=== PATIENT | female | born 1960 | race Caucasian/White ===

== ENCOUNTER 2022-04-30 08:12 | Emergency (ER) | payer BC, SELFPAY ==
[2022-04-30 08:15] VITALS: BP 163/82; PULSE 66; RESP 16; TEMP 36.2; O2SAT 99
[2022-04-30] MEDS: Normal Saline 1,000 ML 1000 ML IV (08:30)
--- NOTE | 2022-04-30 08:38 | W.ED.GENAD ---
Discharge Plan Disposition Patient Disposition: HOME Condition: Improving Discharge Details Clinical Impression: Nausea & vomiting, Electrolyte abnormality Primary Care Provider: Unknown,Unknown ED Provider: Piyush Banks Home Meds and New Rx's Prescriptions: New ondansetron 4 mg tablet,disintegrating 4 mg PO Q6H PRNQty: 10 0RF No Action multivitamin Capsule 1 cap PO DAILY Discharge Instructions Instructions: Acute Nausea and Vomiting (ED) Additional Instructions: Continue to stay well-hydrated and drink electrolyte water. It is recommended for at least the next 12 hours to have clear liquid diet then slowly advance your diet as tolerated by symptoms. If you have any new or significant worsening of symptoms such as persistent uncontrollable vomiting, fever chills, or severe abdominal pain please return to the emergency department or go to the closest emergency department for reassessment. Referrals: Primary Care Provider [Outside] (As needed for reassessment or if not improving) Discharge Data Discharge Date/Time-TO BE ENTERED AT DEPARTURE: 04/30/22 10:35 Medical Decision Making Patient presenting to the emergency department for chief complaint of nausea vomiting and headache. She states that she was at a wedding yesterday evening and may have had food that cause food poisoning but also has a history of migraine headaches with similar presentation. Patient denies any different symptoms compared to her typical migraine but does state that she had some muscle cramping. Exam is unremarkable for any worrisome focal findings. We will check labs due to concern of potential electrolyte abnormalities or abnormal findings secondary to foodborne illness. Will give IV fluids and also treat migraine potential with Toradol, Compazine, Benadryl. Review of labs show an overall unremarkable CBC, CMP shows slight hyponatremia, hypokalemia, low chloride, magnesium 1.7 with slightly elevated glucose. We will plan on repleting patient's potassium and magnesium along with p.o. challenge. Patient tolerating p.o. intake and review of urinalysis shows no worrisome findings. We will plan on discharging patient with return and follow-up precautions. After discussion of diagnosis and plan of care patient has no further needs, questions, or concerns and states clear understanding to return to the emergency department for any worsening symptoms. This documentation was generated using [employer] system, please disregard any oddities of phrase or misspellings. Lab Data Lab results reviewed: Yes I reviewed the patient's lab results. HPI General Mode of arrival: ambulatory. Date/Time Provider Initiated Documentation: 04/30/22 08:25. Limitations to Documentation: no limitations. Information obtained by: patient, family and RN notes reviewed. History of Present Illness 62 year old F presents to the emergency department with the chief complaint of Nausea vomiting headache, described as moderate and similar to prior episodes, with intensity rated at 10. Quality is described as aching, and is localized to the head. Patient reports no radiation. Patient started experiencing this hour(s) (4) and it has been constant. No relieving factors improve symptom(s), Eating worsens symptoms . Patient notes loss of appetite and nausea/vomiting. Patient did receive the following treatments prior to arrival, other (Acetaminophen) Related Data Home Medications Medication Instructions Recorded Confirmed multivitamin 1 cap PO DAILY 04/30/22 04/30/22 ondansetron 4 mg disintegrating 4 mg PO Q6H PRN #10 tabs 04/30/22 tablet Previous Rx's Medication Instructions Recorded ondansetron 4 mg disintegrating 4 mg PO Q6H PRN #10 tabs 04/30/22 tablet Allergies Allergy/AdvReac Type Severity Reaction Status Date / Time erythromycin base Allergy Unverified 04/30/22 08:22 General Stated Complaint: Nausea/Vomit/Diar SAMANTHA: 3 Review of Systems Constitutional Constitutional: Denies body ache(s), Denies chills, Denies fever(s), Reports headache(s) and Reports malaise Eyes Eyes: Denies change in vision ENT Ears, Nose, Mouth, and Throat: Denies dizziness and Reports headache(s) Cardiovascular Cardiovascular: Denies chest pain and Denies syncope Respiratory Respiratory: Denies cough Gastrointestinal Gastrointestinal: Denies diarrhea, Denies loose stools, Reports nausea, Reports vomiting and Denies hematemesis Musculoskeletal Musculoskeletal: Reports muscle cramps Integumentary/Breasts Skin/Breast: Denies rash Neurologic Neurologic: Reports as per HPI, Denies dizziness, Denies syncope, Reports headache(s) and Denies sensory deficit PFSH All Active Problems (Updated 04/30/22 @ 10:22 by Piyush Banks NP) Nausea & vomiting (Acute) Electrolyte abnormality (Acute) Medical History (Updated 04/30/22 @ 10:22 by Piyush Banks NP) Migraine headache Social History Smoking/Tobacco Use Status: Never Smoking risk assessment performed?: Yes Substance use type: does not use Do you feel safe at home: Yes Do you feel safe in your relationship?: Yes Exam Const General: cooperative, healthy appearing, no acute distress and well groomed Orientation: alert, awake and oriented x3 HENMT Head: normal to inspection Ears: hearing grossly normal bilaterally and TM's normal bilaterally Mouth: oral mucosae normal and moist mucous membranes Throat: posterior oropharynx normal Resp Effort & Inspection: normal respiratory effort and able to speak in complete sentences Auscultation: clear to auscultation bilaterally Cardio Rate: regular rate Rhythm: regular rhythm Heart Sounds: S1 normal and S2 normal GI Palpation: soft, not firm, no guarding, not rigid and nontender Auscultation: normal bowel sounds Neuro General: patient alert, patient awake, patient oriented x3, gait normal, tone normal, moves all extremities and not confused Cognition: normal cognition Speech: speech normal Motor: muscle tone normal throughout and no movement abnormalities noted Course Vital Signs Vital signs: Vital Signs Temperature 36.2 C L 04/30/22 08:15 Pulse 66 04/30/22 08:15 Respiratory Rate 16 04/30/22 08:15 Blood Pressure 163/82 H 04/30/22 08:15 Pulse Oximetry 99 04/30/22 08:15 Temperature 36.2 C L 04/30/22 08:15 Temperature Source Temporal Artery Scan 04/30/22 08:15 Pulse 66 04/30/22 08:15 Respiratory Rate 16 04/30/22 08:15 Respiratory Effort 04/30/22 08:19 Blood Pressure 163/82 H 04/30/22 08:15 Blood Pressure Position Supine 04/30/22 08:15 Pulse Oximetry 99 04/30/22 08:15 Oxygen Delivery Method Room Air 04/30/22 08:15 Oxygen Flow Rate 0 04/30/22 08:15 Pain Level 10 04/30/22 08:15
[2022-04-30] MEDS: Ketorolac 30 MG/ML VIAL IVP (08:49)
[2022-04-30] MEDS: diphenhydrAMINE 50 MG/ML VIAL 25 MG IVP (08:49)
[2022-04-30] MEDS: Prochlorperazine 10 MG/2 ML VIAL IVP (08:49)
[2022-04-30 09:07] LABS: Abs Immature Grans 0.04 10^3/uL (0.0-0.06); Absolute Basophil Count 0.04 10^3/uL (0.0-0.2); Absolute Eosinophil Count 0.05 10^3/uL (0.0-0.7); Absolute Lymphocyte Count 0.87 10^3/uL (1.2-3.4); Absolute Monocyte Count 0.22 10^3/uL (0.1-0.8); Absolute Neutrophil Count 5.27 10^3/uL (1.2-6.7); Basophils % 0.6; Eosinophils % 0.8; HCT 37.8 % (36.0-46.0); HGB 13.1 g/dL (11.2-15.7); Immature Grans % 0.6; Lymphocytes % 13.4; MCH 29.1 pg (27.0-33.0); MCHC 34.7 % (32.0-36.0); MCV 84 fL (80-95); MPV 9.5 fL (8.0-11.0); Monocytes % 3.4; Neutrophils % 81.2; Platelet Count 218 10^3/uL (130-400); RDW 13.5 % (11.7-14.6); RDW-SD 41.5 fL; WBC 6.49 10^3/uL (4.4-10.8)
[2022-04-30 09:22] LABS: ALT 34 U/L (14-59); AST 25 U/L (15-37); Albumin 4.2 g/dL (3.4-5.0); Alkaline Phosphatase 109 U/L (46-116); Anion Gap 8.7 mmol/L (3-11); BUN 13 mg/dL (7-18); Bilirubin, Total 0.9 mg/dL (0.2-1.0); CO2 26.3 mmol/L (21.0-32.0); CREATININE 0.6 mg/dL (0.55-1.02); Calcium 9.1 mg/dL (8.5-10.1); Chloride 93 mmol/L (98-107); Glucose 147 mg/dL (74-106); Lipase 377 U/L (73-393); Magnesium 1.7 mg/dL (1.8-2.4); Potassium 3.3 mmol/L (3.5-5.1); Sodium 128 mmol/L (136-145); Total Protein 7.4 g/dL (6.4-8.2)
[2022-04-30] MEDS: POTASSIUM CHLORIDE 20 MEQ, POTASSIUM CHLORIDE 10 MEQ 30 MEQ PO (09:45)
[2022-04-30] MEDS: Magnesium Oxide 400 MG TAB PO (09:45)
[2022-04-30 10:06] LABS: Bilirubin Negative (Negative); Blood Trace-intact (Negative); Clarity Clear (Clear); Glucose 100 mg/dL (Negative); Ketones 15 mg/dL (Negative); Leukocyte Esterase Negative (Negative); Nitrite Negative (Negative); Urobilinogen 0.2 EU/dL (Up TO 0.2); pH 7.5 (5-8)
[2022-04-30 10:14] LABS: Bacteria Negative HPF (Negative); C & S Indicated? No; Casts Negative LPF (Negative); Crystals Negative HPF (Negative); Epithelial Cells Rare HPF (Negative); Mucus Negative (Negative); WBC 0-2 HPF (0-5)
== END 2022-04-30 10:35 | disposition home or self-care (01) ==
PROVIDERS: Emergency Provider Nurse Practitioner Family
DX: E87.1 Hypo-osmolality and hyponatremia (principal); E87.6 Hypokalemia; E87.8 Other disorders of electrolyte and fluid balance, not elsewhere classified; R73.9 Hyperglycemia, unspecified
CPT/HCPCS: 36415; 80053; 83690; 96361; 96374; 96375; 99284; 81003; 81015; 83735; 85025; J0780; J1200; J1885